=== PATIENT | male | born 1990 | race Caucasian/White ===

== ENCOUNTER 2022-07-07 14:32 | Inpatient (IN) | payer OTHER, SELFPAY ==
[~2022-07-07] VITALS: Ht 182.9 cm; Wt 79.5 kg
[2022-07-07] MEDS ORDERED: NS 1,000 ML IV ONE (14:50)
[2022-07-07 15:17] LABS: BASO % 0.5 % (0.0-1.0); HEMOGLOBIN 13.8 g/dl (13.5-17.5); LYMPH # 0.8 10^3/uL (1.5-5.0); LYMPH % 9.6 % (24.0-44.0); MEAN CORPUSCULAR HEMOGLOBIN 28.4 pg (27.0-33.0); MEAN CORPUSCULAR HGB CONC 32.1 g/dl (32.0-36.5); MEAN CORPUSCULAR VOLUME 88.5 fl (80.0-96.0); MONO # 0.6 10^3/uL (0.0-0.8); MONO % 7.3 % (2.0-8.0); NEUTROPHILS # 6.6 10^3/uL (1.5-8.5); NEUTROPHILS % 82.2 % (36.0-66.0); PLATELET COUNT, AUTOMATED 206 10^3/uL (150-450); RED BLOOD COUNT 4.86 10^6/uL (4.30-6.10); WHITE BLOOD COUNT 8.1 10^3/uL (4.0-10.0)
[2022-07-07] MEDS: GASTROGRAFIN SOLUTION 30ML PO SCH ×2 (15:18→15:46)
[2022-07-07 15:50] LABS: ALBUMIN 2.8 GM/DL (3.2-5.2); ALT/SGPT 22 U/L (12-78); BILIRUBIN,DIRECT 0.2 MG/DL (0.0-0.2); BILIRUBIN,TOTAL 0.4 MG/DL (0.2-1.0); BLOOD UREA NITROGEN 12 MG/DL (7-18); CALCIUM LEVEL 8.1 MG/DL (8.5-10.1); CARBON DIOXIDE LEVEL 29 MEQ/L (21-32); CHLORIDE LEVEL 101 MEQ/L (98-107); CREATININE FOR GFR 1.02 MG/DL (0.70-1.30); GLOMERULAR FILTRATION RATE > 60.0 (>60); GLUCOSE, FASTING 103 MG/DL (70-100); LIPASE 131 U/L (73-393); POTASSIUM SERUM 3.8 MEQ/L (3.5-5.1); SODIUM LEVEL 135 MEQ/L (136-145); TOTAL PROTEIN 6.4 GM/DL (6.4-8.2)
[2022-07-07] MEDS ORDERED: LevoFLOXacin IV 750 MG in IV 1 EA IV ONE (16:10)
[2022-07-07] MEDS ORDERED: PRED20TA PO (16:27)
[2022-07-07] MEDS ORDERED: ELIQ5TAB PO (16:27)
[2022-07-07] MEDS ORDERED: PANT40TA29 PO (16:27)
[2022-07-07] MEDS ORDERED: ISOVUE-370 76% 100ML VIAL As Ordered ONE (17:23)
[2022-07-07] MEDS ORDERED: ONDANSETRON 4MG 2ML VIAL IV ONE (18:35)
[2022-07-07] MEDS ORDERED: ACETAMINOPHEN TAB 650MG DOSE (2X325MG) PO ONE (18:35)
[2022-07-07] MEDS ORDERED: HOME MED LIST COMPLETE! XX SCH (19:45)
[2022-07-07] MEDS ORDERED: PROMETHAZINE 25MG/ML 1ML VIAL IV PRN (21:45)
[2022-07-07] MEDS: APIXABAN 5 MG TAB (ELIQUIS) PO SCH (21:46)
[2022-07-07] MEDS: NS 1,000 ML IV SCH (21:46)
[2022-07-07] MEDS: ACETAMINOPHEN TAB 650MG DOSE (2X325MG) PO PRN (21:46)
[2022-07-07 22:40] VITALS: BP 126/80
[2022-07-07] MEDS ORDERED: ONDANSETRON 4MG 2ML VIAL IV PRN (23:00)
[2022-07-08] MEDS: NS 1,000 ML IV SCH ×2 (05:41→17:20)
[2022-07-08] MEDS: ACETAMINOPHEN TAB 650MG DOSE (2X325MG) PO PRN ×3 (05:44→18:40)
[2022-07-08 06:00] VITALS: BP 110/73
[2022-07-08 07:23] LABS: HEMATOCRIT 39.8 % (42.0-52.0); HEMOGLOBIN 13.4 g/dl (13.5-17.5); MEAN CORPUSCULAR HEMOGLOBIN 29.7 pg (27.0-33.0); MEAN CORPUSCULAR HGB CONC 33.7 g/dl (32.0-36.5); MEAN CORPUSCULAR VOLUME 88.2 fl (80.0-96.0); PLATELET COUNT, AUTOMATED 187 10^3/uL (150-450); RED BLOOD COUNT 4.51 10^6/uL (4.30-6.10); WHITE BLOOD COUNT 8.5 10^3/uL (4.0-10.0)
[2022-07-08] MEDS ORDERED: IBUPROFEN 600MG TAB PO PRN (07:30)
[2022-07-08 07:55] LABS: ALBUMIN 2.5 GM/DL (3.2-5.2); ALT/SGPT 18 U/L (12-78); BILIRUBIN,TOTAL 0.4 MG/DL (0.2-1.0); BLOOD UREA NITROGEN 9 MG/DL (7-18); CARBON DIOXIDE LEVEL 27 MEQ/L (21-32); CHLORIDE LEVEL 99 MEQ/L (98-107); GLOMERULAR FILTRATION RATE > 60.0 (>60); GLUCOSE, FASTING 101 MG/DL (70-100); MAGNESIUM LEVEL 1.9 MG/DL (1.8-2.4); POTASSIUM SERUM 3.8 MEQ/L (3.5-5.1); SODIUM LEVEL 133 MEQ/L (136-145)
[2022-07-08] MEDS: APIXABAN 5 MG TAB (ELIQUIS) PO SCH ×2 (08:26→20:22)
[2022-07-08] MEDS: predniSONE 20 MG TAB PO SCH (08:27)
[2022-07-08] MEDS: PANTOPRAZOLE 40MG TAB (PROTONIX) PO SCH (08:27)
[2022-07-08] MEDS: PIPERACILLIN/TAZOBACTAM SOD 3.375 GM in D5W MINI-BAG PLUS 50 ML IV SCH ×3 (08:27→20:22)
[2022-07-08 09:30] VITALS: BP 112/70
[2022-07-08] MEDS: DOXYCYCLINE HYCLATE 100 MG in D5W MINI-BAG PLUS 100 ML IV SCH ×2 (09:37→21:51)
[2022-07-08 14:00] VITALS: BP 122/66
[2022-07-08] MEDS ORDERED: LevoFLOXacin IV 750 MG in IV 1 EA IV SCH (18:00)
[2022-07-08 21:00] VITALS: BP 107/59
[2022-07-08 22:00] VITALS: BP 107/59
[2022-07-09] MEDS: PIPERACILLIN/TAZOBACTAM SOD 3.375 GM in D5W MINI-BAG PLUS 50 ML IV SCH ×4 (03:16→21:05)
[2022-07-09] MEDS: ACETAMINOPHEN TAB 650MG DOSE (2X325MG) PO PRN (03:17)
[2022-07-09 05:57] LABS: BASO % 0.2 % (0.0-1.0); HEMATOCRIT 37.2 % (42.0-52.0); HEMOGLOBIN 12.3 g/dl (13.5-17.5); LYMPH # 1.1 10^3/uL (1.5-5.0); LYMPH % 17.2 % (24.0-44.0); MEAN CORPUSCULAR HEMOGLOBIN 29.5 pg (27.0-33.0); MEAN CORPUSCULAR HGB CONC 33.1 g/dl (32.0-36.5); MEAN CORPUSCULAR VOLUME 89.2 fl (80.0-96.0); MONO # 0.6 10^3/uL (0.0-0.8); MONO % 10.2 % (2.0-8.0); NEUTROPHILS # 4.5 10^3/uL (1.5-8.5); NEUTROPHILS % 72.1 % (36.0-66.0); PLATELET COUNT, AUTOMATED 173 10^3/uL (150-450); RED BLOOD COUNT 4.17 10^6/uL (4.30-6.10); WHITE BLOOD COUNT 6.3 10^3/uL (4.0-10.0)
[2022-07-09 06:00] VITALS: BP 119/63
[2022-07-09 06:28] LABS: BLOOD UREA NITROGEN 14 MG/DL (7-18); CALCIUM LEVEL 8.1 MG/DL (8.5-10.1); CARBON DIOXIDE LEVEL 31 MEQ/L (21-32); CHLORIDE LEVEL 106 MEQ/L (98-107); CREATININE FOR GFR 0.82 MG/DL (0.70-1.30); GLOMERULAR FILTRATION RATE > 60.0 (>60); GLUCOSE, FASTING 113 MG/DL (70-100); POTASSIUM SERUM 3.9 MEQ/L (3.5-5.1); SODIUM LEVEL 140 MEQ/L (136-145)
[2022-07-09] MEDS ORDERED: ACETAMINOPHEN TAB 650MG DOSE (2X325MG) PO PRN (07:45)
[2022-07-09] MEDS: PANTOPRAZOLE 40MG TAB (PROTONIX) PO SCH (08:23)
[2022-07-09] MEDS: predniSONE 20 MG TAB PO SCH (08:23)
[2022-07-09] MEDS: APIXABAN 5 MG TAB (ELIQUIS) PO SCH ×2 (08:23→21:05)
[2022-07-09] MEDS: DOXYCYCLINE HYCLATE 100 MG in D5W MINI-BAG PLUS 100 ML IV SCH ×2 (09:31→22:29)
[2022-07-09 14:00] VITALS: BP 118/70
[2022-07-09 17:07] LABS: MYCOPLASMA PNEUMONIAE IgG 347 U/mL (0-99); MYCOPLASMA PNEUMONIAE IgM <770 U/mL (0-769)
[2022-07-09 20:46] VITALS: BP 118/64
[2022-07-10] MEDS: PIPERACILLIN/TAZOBACTAM SOD 3.375 GM in D5W MINI-BAG PLUS 50 ML IV SCH ×2 (02:14→08:46)
[2022-07-10 05:30] VITALS: BP 112/67
[2022-07-10 05:51] LABS: BASO % 0.2 % (0.0-1.0); HEMATOCRIT 38.1 % (42.0-52.0); HEMOGLOBIN 12.2 g/dl (13.5-17.5); LYMPH # 1.9 10^3/uL (1.5-5.0); LYMPH % 19.2 % (24.0-44.0); MEAN CORPUSCULAR HEMOGLOBIN 28.6 pg (27.0-33.0); MEAN CORPUSCULAR VOLUME 89.4 fl (80.0-96.0); MONO # 0.8 10^3/uL (0.0-0.8); MONO % 7.8 % (2.0-8.0); NEUTROPHILS # 7.3 10^3/uL (1.5-8.5); NEUTROPHILS % 72.4 % (36.0-66.0); PLATELET COUNT, AUTOMATED 222 10^3/uL (150-450); RED BLOOD COUNT 4.26 10^6/uL (4.30-6.10); WHITE BLOOD COUNT 10.1 10^3/uL (4.0-10.0)
[2022-07-10 06:28] LABS: BLOOD UREA NITROGEN 13 MG/DL (7-18); CALCIUM LEVEL 8.3 MG/DL (8.5-10.1); CARBON DIOXIDE LEVEL 29 MEQ/L (21-32); CHLORIDE LEVEL 105 MEQ/L (98-107); CREATININE FOR GFR 0.81 MG/DL (0.70-1.30); GLOMERULAR FILTRATION RATE > 60.0 (>60); GLUCOSE, FASTING 90 MG/DL (70-100); POTASSIUM SERUM 3.6 MEQ/L (3.5-5.1); SODIUM LEVEL 138 MEQ/L (136-145)
[2022-07-10] MEDS ORDERED: CEFD300CAP PO (07:40)
[2022-07-10] MEDS ORDERED: PROBCAP14 PO (07:40)
[2022-07-10] MEDS ORDERED: DOXY100C3 PO (07:40)
[2022-07-10] MEDS ORDERED: PRED20TA PO (08:16)
[2022-07-10] MEDS ORDERED: ELIQ5TAB PO (08:16)
[2022-07-10] MEDS ORDERED: PANT40TA29 PO (08:16)
[2022-07-10] MEDS: APIXABAN 5 MG TAB (ELIQUIS) PO SCH (08:47)
[2022-07-10] MEDS: PANTOPRAZOLE 40MG TAB (PROTONIX) PO SCH (08:47)
[2022-07-10] MEDS: predniSONE 20 MG TAB PO SCH (08:47)
[2022-07-10] MEDS: DOXYCYCLINE HYCLATE 100 MG in D5W MINI-BAG PLUS 100 ML IV SCH (08:47)
[2022-07-10 15:10] LABS: CHLAMYDIA PNEUMONIAE IgG 1:32 (Neg:<1:16); CHLAMYDIA PNEUMONIAE IgM <1:10 (Neg:<1:10)
== END 2022-07-10 13:30 | disposition home or self-care (01) | DRG 194 ==
LOC: M ED 14:32 → EDBD 14:32 → M ED INP 21:00 → M MS5PR 22:45
PROVIDERS: ADMIT Family Medicine; ATTEND Family Medicine
DX: J18.9 Pneumonia, unspecified organism (principal); D84.9 Immunodeficiency, unspecified; K51.90 Ulcerative colitis, unspecified, without complications; Z79.52 Long term (current) use of systemic steroids; Z86.711 Personal history of pulmonary embolism; Z79.01 Long term (current) use of anticoagulants; Z90.2 Acquired absence of lung [part of]; Z79.899 Other long term (current) drug therapy; Z20.822 Contact with and (suspected) exposure to COVID-19